=== PATIENT | female | born 1980 | race Caucasian/White ===

== ENCOUNTER 2018-08-21 09:03 | Day surgery (SDC) | payer MEDICAID ==
[2018-08-17 11:57] LABS: BASOPHILS % (AUTO) 0.2 % (0-1); EOSINOPHILS # (AUTO) 0.2 X10'3 (0-0.9); EOSINOPHILS % (AUTO) 1.8 % (0-6); LYMPHOCYTES # (AUTO) 1.7 X10'3 (1.1-4.8); LYMPHOCYTES % (AUTO) 19.2 % (21-51); MEAN CORPUSCULAR HEMOGLOBIN 34.8 PG (27.0-31.0); MEAN CORPUSCULAR HGB CONC 33.8 % (33.0-36.5); MEAN CORPUSCULAR VOLUME 103.1 FL (78-98); MEAN PLATELET VOLUME 7.6 FL (7.4-10.4); MONOCYTES # (AUTO) 0.5 X10'3 (0-0.9); MONOCYTES % (AUTO) 5.5 % (2-12); NEUTROPHILS # (AUTO) 6.4 X10'3 (1.8-7.7); NEUTROPHILS % (AUTO) 73.3 % (42-75); PRE OP HEMOGLOBIN 12.5 g/dL (12.0-16.0); PRE OP PLATELET COUNT 196 X10'3 (140-440); RED BLOOD COUNT 3.59 X10'6 (4.20-5.60)
[2018-08-17 12:12] LABS: ALBUMIN 3.4 G/DL (3.4-5.0); ALKALINE PHOSPHATASE 71 IU/L (46-116); BLOOD UREA NITROGEN 9 MG/DL (7-18); BUN/CREATININE RATIO 12.9 (6.6-38.0); CALCIUM 8.6 MG/DL (8.5-10.1); CHLORIDE 105 MMOL/L (99-107); HCG SERUM QL NEGATIVE; PRE OP ALT 32 U/L (30-65); PRE OP ANION GAP 9 (8-16); PRE OP AST 27 U/L (10-37); PRE OP BILIRUB, TOTAL 0.4 MG/DL (0.0-1.0); PRE OP GLUCOSE 82 MG/DL (70-104); PRE OP POTASSIUM 3.6 MMOL/L (3.4-5.1); PRE OP SODIUM 140 MMOL/L (135-145); TOTAL PROTEIN 6.9 G/DL (6.4-8.2); eGFR > 90 ML/MIN
[~2018-08-21] VITALS: Ht 162.6 cm; Wt 60.8 kg
[~2018-08-21 09:03] MED LIST: FLUT16SP10 BOTHNARES; HYDR-3686 PO; IBUP-1985 PO; LISI-600 PO; RANI150T8 PO; ceFAZolin 1GM/D5W- ADD-VANTAGE 50 ML IV ONE; famotidine 20mg tablet PO ONE; ringers solution, lacted 1,000 ML IV SCH
[2018-08-21 09:15] VITALS: BP 142/95
[2018-08-21] MEDS ORDERED: BUPIVAcaine/PF 2.5mg/ml (0.25%) 10ml vial ONE (12:29)
[2018-08-21] MEDS ORDERED: MIDAZolam 5mg/5ml vial ONE (12:50)
[2018-08-21] MEDS ORDERED: fentaNYL/PF 50MCG/1 ML 2ML syringe ONE (12:50)
[2018-08-21] MEDS ORDERED: propofol inj 20 ML IV ONE (13:00)
[2018-08-21] MEDS ORDERED: LIDOcaine 2% (20mg/ml) 5ml vial ONE (13:00)
[2018-08-21 13:20] VITALS: BP 142/97
[2018-08-21] MEDS ORDERED: ringers solution, lacted 1,000 ML IV SCH (13:22)
[2018-08-21] MEDS ORDERED: ondansetron/PF 4mg/2ml inj IV PRN (13:25)
[2018-08-21] MEDS ORDERED: morphine 4 MG/ML inj SYRINge IV PRN ×2 (13:25)
[2018-08-21] MEDS ORDERED: fentaNYL/PF 50MCG/1 ML 2ML syringe IV PRN ×2 (13:25)
[2018-08-21] MEDS ORDERED: labetalol 20mg/4ml (5mg/ml) syringe IV PRN (13:25)
[2018-08-21] MEDS ORDERED: hydrALAZINE 20mg/ml inj. IV PRN (13:25)
[2018-08-21 13:30] VITALS: BP 151/90
[2018-08-21 13:42] VITALS: BP 155/94
[2018-08-21 13:52] VITALS: BP 133/83
== END 2018-08-21 14:00 | disposition home or self-care (01) ==
LOC: PAS 09:03
PROVIDERS: ATTEND Orthopaedic Surgery Hand Surgery
DX: G56.02 Carpal tunnel syndrome, left upper limb (principal); Z88.5 Allergy status to narcotic agent; Z88.8 Allergy status to other drugs, medicaments and biological substances; Z91.040 Latex allergy status; F17.210 Nicotine dependence, cigarettes, uncomplicated; Z68.22 Body mass index [BMI] 22.0-22.9, adult; Z79.899 Other long term (current) drug therapy; Z90.49 Acquired absence of other specified parts of digestive tract; Z98.890 Other specified postprocedural states
CPT/HCPCS: 29848; 36415; 80053; 84703; 85025; A6449; J0690; J2001; J2250; J2704; J3010; J3490; A7000; J7120